=== PATIENT | female | born 1970 | race Caucasian/White ===

== ENCOUNTER 2019-03-16 19:56 | Emergency (ER) | payer MEDICAID ==
[~2019-03-16] VITALS: Ht 160 cm; Wt 93.8 kg
[~2019-03-16 19:56] MED LIST: ALBU8.5H8 INH; AZIT500T3 PO; IBUP-1542 PO
[2019-03-16 20:02] VITALS: Ht 160 cm; Wt 93.8 kg
[2019-03-16] MEDS ORDERED: IPRATROPIUM (NEB) 0.5 MG/2.5 ML AMP HHN ONE (21:30)
[2019-03-16] MEDS ORDERED: LABETALOL HCL 20MG INJ IV ONE (21:30)
[2019-03-16] MEDS ORDERED: LEVALBUTEROL (NEB) 1.25 MG/0.5 ML AMP HHN ONE (21:30)
[2019-03-16 23:19] VITALS: BP 134/84; PULSE 88; RESP 18
== END 2019-03-16 23:27 | disposition home or self-care (01) ==
LOC: E/R 19:56
DX: I10 Essential (primary) hypertension (principal); J45.909 Unspecified asthma, uncomplicated
CPT/HCPCS: 36415; 70450; 80048; 85025; 85610; 85730; 93005; 94664; 96374; Z7502; Z7610